=== PATIENT | male | born 1990 | race Two or more races ===

== ENCOUNTER 2024-04-22 13:09 | Emergency (ER) | payer OTHER ==
[~2024-04-22] VITALS: Ht 180.3 cm; Wt 104.5 kg
--- NOTE | 2024-04-22 14:05 | DVH ---
CLINICAL INDICATION: + DEFORMITY, ROLLED WHILE SKATEBOARDING TECHNIQUE: 3 radiographic views of the left ankle were obtained. Comparison: None FINDINGS/IMPRESSION: Anterior dislocation of the tibia fibula and talus. Posterior dislocation of the foot with bony fragm ents dorsal to the calcaneu. Donor sites may be from the talus or posterior calcaneus. AP view of the ankle demonstrate proximal bony fragments to be displaced laterally and foot displaced medially. HS:Y
--- NOTE | 2024-04-22 14:48 | ED.PDOC ---
Musculoskeletal HPI Comments 33 year old male presents to the ED with chief complaint of left ankle injury. Patient reports that after going on a ramp while skateboarding, he fell and injured his left ankle, causing it to become deformed. Patient relays that he has severe pain and swelling to his left ankle now. Patient states he has had multiple bilateral ankle sprains and fractures in the past. Patient notes he took 2 shots of hard liquor prior to coming in due to the pain. Patient denies any numbness, weakness, leg injury, back injury, or head injury. Chief Complaint: Lower Extremity Time Seen by MD: 14:40 Primary Care Provider: DENIES Reviewed Notes: Nurses Notes, Medications, Allergies Allergies: Coded Allergies: NO KNOWN ALLERGIES (Unverified , 04/22/24) Home Meds Active Scripts Ibuprofen (Ibuprofen) 800 Mg Tab, 1 TAB PO Q8HP PRN, #30 TAB 1 Refill Prov:CHASE PACE MD 04/22/24 Hydrocodone-Acetaminophen (Hydrocodone Bitartrate/AC 5-325 mg) 1 Tab Tab, 1 TAB PO TID PRN, #24 TAB Prov:PRESTON BABIN 04/22/24 Information Source: Patient Mode of Arrival: Wheelchair Location: Left Extremity Location: Ankle Timing: Hours Prehospital treatment: None Severity: Severe Able to Move Extremity: No Bear Weight: No Pain: Severe Mechanism: Twisting Circumstances: Sporting, Fall Onset of Symptoms: After Trauma Symptoms: Swelling, Pain DVT Risk Factors: NONE Last Tetanus: UTD Associated signs and symptoms: Ankle pain Past Medical History PAST MEDICAL HISTORY: Denies Surgical History: Denies all surgeries Family History Family History: Reviewed,noncontributory to illness Social History Smoker: Non-Smoker Alcohol: Occasionally Drugs: Marijuana Lives In: Home Constitutional: denies: chills, diaphoresis, fatigue, fever, malaise, sweats, weakness, others EENTM: denies: blurred vision, double vision, ear bleeding, ear discharge, ear drainage, ear pain, ear ringing, eye pain, eye redness, hearing loss, mouth pain, mouth swelling, nasal discharge, nose bleeding, nose congestion, nose pain, photophobia, tearing, throat pain, throat swelling, voice changes, others Respiratory: denies: cough, hemoptysis, orthopnea, SOB at rest, shortness of breath, SOB with excertion, stridor, wheezing, others Cardiovascular: denies: chest pain, dizzy spells, diaphoresis, Dyspnea on exertion, edema, irregular heart beat, left arm pain, lightheadedness, palpitations, PND, syncope, others Gastrointestinal: denies: abdomen distended, abdominal pain, blood streaked bowels, constipated, diarrhea, dysphagia, difficulty swallowing, hematemesis, melena, nausea, poor appetite, poor fluid intake, rectal bleeding, rectal pain, vomiting, others Genitourinary: denies: burning, dysuria, flank pain, frequency, hematuria, incontinence, penile discharge, penile sore, pain, testicle pain, testicle swelling, urgency, others Neurological: denies: dizziness, fainting, headache, left sided numbness, left sided weakness, numbness, paresthesia, pre-existing deficit, right sided numbness, right sided weakness, seizure, speech problems, tingling, tremors, weakness, others Musculoskeletal: reports: others (Left ankle pain, swelling, and dislocation); denies: back pain, gout, joint pain, joint swelling, muscle pain, muscle stiffness, neck pain Integumetry: denies: bruises, change in color, change in hair/nails, dryness, laceration, lesions, lumps, rash, wounds, others Allergic/Immunocompromised: denies: Difficulty Healing, Frequent Infections, Hives, Itching, others Hematologic/Lymphatic: denies: anemia, blood clots, easy bleeding, easy bruising, swollen glands, others Endocrine: denies: excessive hunger, excessive sweating, excessive thirst, excessive urination, flushing, intolerance to cold, intolerance to heat, unexplained weight gain, unexplained weight loss, others Psychiatric: denies: anxiety, bipolar disorder, depression, hopeless, panic disorder, schizophrenia, sleepless, suicidal, others All Other Systems: Reviewed and Negative Physical Exam General Appearance: Mild Distress HEENT: Other (Unremarkable) Neck: Full Range of Motion, Non-Tender, Normal Inspection Respiratory: Chest Non-Tender, Lungs Clear, No Accessory Muscle Use, No Respiratory Distress, Normal Breath Sounds Cardiovascular: No JVD, Regular Rate/Rhythm Breast Exam: Deferred Gastrointestinal: Non Tender, Soft Genitalia: Deferred Pelvic: Deferred Rectal: Deferred Extremities: Other (Left ankle deformity and soft tissue swelling with severe tenderness and limited range of motion. DP and PT pulses palpable left lower extremity) Neurologic: Alert (Oriented x4), Normal Affect, Normal Mood, Other (Moves all extremities. No gross focal deficit.) Cerebellar Function: NOT DONE Reflexes: NOT DONE Skin: Dry, Normal Color, Warm Peripheral Pulses: 2+ dorsalis pedis (R), 2+ dorsalis pedis (L) Lymphatic: NOT DONE Was a procedure done? Was a procedure done?: Yes Sedation Sedation?: Yes Informed consent obtained: Yes Sedation start time: 19:10 Sedation end time: 19:20 Sedation total time: 10 minutes Reduction Indication: Dislocation, Fracture Sedation: Consents obtained, Sedation as ordered (100mg of Ketamine) Intra-articular anesthetic carmela: No Post-reduction x-ray show: Reduction, Good Alignment Informed consent obtained: Yes Risks/benefits/alt described: Yes Other Procedure Procedure Left lower extremity short stirrup/posterior molded splint applied. Left lower extremity neurovascularly intact after splinting. Differential Diagnosis EXT Differential Diagnosis: Fracture, Sprain, Dislocation, Strain X-Ray, Labs, Meds, VS Vital Signs Date Time Temp Pulse Resp B/P (MAP) Pulse Ox O2 Delivery O2 Flow Rate FiO2 04/22/24 19:30 111 21 159/88 (111) 96 04/22/24 19:21 118 24 99 2.0 28 156 26 99 172 100 04/22/24 19:20 146 15 182/95 (124) 97 04/22/24 18:05 78 19 140/81 04/22/24 17:35 92 15 137/81 04/22/24 17:30 92 15 137/81 (99) 99 04/22/24 15:34 80 19 99 Room Air* 0 21 04/22/24 15:33 80 19 154/86 (108) 99 04/22/24 15:32 80 19 154/86 04/22/24 14:55 84 17 139/81 04/22/24 13:33 92 16 98 Room Air 04/22/24 13:33 98.5 92 16 152/89 (110) 98 98.5 04/22/24 13:25 99.0 83 16 139/85 (103) 96 Lab Test 04/22/24 14:53 Range/Units White Blood Count 9.8 4.4-10.8 10^3/uL Red Blood Count 4.87 4.5-5.90 10^6/uL Hemoglobin 11.1 L 13.5-17.5 g/dL Hematocrit 35.6 L 41.0-53.0 % Mean Corpuscular Volume 73.2 L 80.0-100.0 fL Mean Corpuscular Hemoglobin 22.7 L 28.0-32.0 pg Mean Corpuscular Hemoglobin Concent 31.0 L 32.0-36.0 g/dL Red Cell Distribution Width 27.0 H 11.8-14.3 % Platelet Count 262 140-450 10^3/uL Mean Platelet Volume 7.1 6.9-10.8 fL Neutrophils (%) (Auto) 84.7 H 37.0-80.0 % Lymphocytes (%) (Auto) 9.2 L 10.0-50.0 % Monocytes (%) (Auto) 5.2 0.0-12.0 % Eosinophils (%) (Auto) 0.3 0.0-7.0 % Basophils (%) (Auto) 0.6 0.0-2.0 % Neutrophils # (Auto) 8.3 1.6-8.6 10 ^3/uL Lymphocytes # (Auto) 0.9 0.4-5.4 10 ^3/uL Monocytes # (Auto) 0.5 0-1.3 10 ^3/uL Eosinophils # (Auto) 0 0-0.8 10 ^3/uL Basophils # (Auto) 0.1 0-0.2 10 ^3/uL Nucleated Red Blood Cells 0.0 % Sodium Level 137 136-145 mmol/L Potassium Level 3.8 3.5-5.1 mmol/L Chloride Level 105 98-107 mmol/L Carbon Dioxide Level 26 20-31 mmol/L Anion Gap 6 5-15 Blood Urea Nitrogen 10 9-23 mg/dL Creatinine 0.81 0.700-1.30 mg/dL Glomerular Filtration Rate Calc 121 >90 mL/min BUN/Creatinine Ratio 12.3 10.0-20.0 Serum Glucose 125 H 74-106 mg/dL Calcium Level 9.2 8.7-10.4 mg/dL Current Medications Medications (Trade) Dose Ordered Sig/Ramón Route Start Time Stop Time Status Last Admin Morphine Sulfate 4 mg ONCE ONCE IV 04/22/24 14:45 04/22/24 14:46 DC 04/22/24 14:55 Ondansetron HCl (Zofran) 4 mg ONCE ONCE IV 04/22/24 14:45 04/22/24 14:46 DC 04/22/24 14:52 Morphine Sulfate 4 mg ONCE ONCE IV 04/22/24 16:45 04/22/24 16:46 DC 04/22/24 17:35 Ketamine HCl (Ketalar) 100 mg ONCE ONCE IV 04/22/24 19:00 04/22/24 19:01 DC 04/22/24 19:04 Left Ankle XR: FINDINGS/IMPRESSION: Anterior dislocation of the tibia fibula and talus. Posterior dislocation of the foot with bony fragments dorsal to the calcaneu. Donor sites may be from the talus or posterior calcaneus. AP view of the ankle demonstrate proximal bony fragments to be displaced laterally and foot displaced medially. Left Ankle XR Post Reduction: FINDINGS/IMPRESSION: There is no evidence of acute fracture or dislocation. The visualized joint space is well maintained. The alignment is anatomical. There is no radiopaque foreign body. X-Ray, Labs, Meds, VS Comment 33-year-old male with no significant past medical history presenting with a left ankle fracture dislocation status post skateboarding injury Vitals unremarkable Exam remarkable for left ankle deformity, soft tissue swelling, tenderness and limited range of motion Left ankle x-rays: FINDINGS/IMPRESSION: Anterior dislocation of the tibia fibula and talus. Posterior dislocation of the foot with bony fragments dorsal to the calcaneu. Donor sites may be from the talus or posterior calcaneus. AP view of the ankle demonstrate proximal bony fragments to be displaced laterally and foot displaced medially. Left ankle postreduction x-rays: FINDINGS/IMPRESSION: There is no evidence of acute fracture or dislocation. The visualized joint space is well maintained. The alignment is anatomical. There is no radiopaque foreign body. Prior to reduction, I discussed the case with Dr. Rojas, on-call for Orthopedics. He reviewed the x-rays. He stated the patient did not have to be taken to the OR for reduction, and requested I perform the reduction in the ED. he stated the patient may follow-up with him tomorrow in clinic. Patient was treated with the following in the ED: Morphine 4 mg IV x2, Zofran 4 mg IV. Ketamine 100 mg IV was administered for conscious sedation. Please see procedure notes for details. On re-evaluation at 7:54 p.m., patient is comfortable with stable vitals. The left lower extremity has been splinted and is neurovascularly intact. Patient was provided with crutches and crutch training. He was advised regarding workup findings, my impression, treatment plan and follow-up recommendations. He expressed understanding and agreed. Time of 1ST Reevaluation: 15:40 Reevaluation 1ST: Unchanged Time of 2ND Reevaluation: 19:55 Reevaluation 2ND: Improved Patient Education/Counseling: Diagnosis, Treatment Family Education/Counseling: No Family Present Departure 1 Departure Time of Disposition: 19:55 Impression: Primary Impression: Closed left ankle fracture Qualified Codes: S82.892A - Other fracture of left lower leg, initial encounter for closed fracture Additional Impression: Dislocation of left ankle joint, initial encounter Disposition: HOME / SELF CARE / HOMELESS Condition: Stable Referrals: CHAD ROJAS MD Additional Instructions: Follow-up with Dr. Rojas, Orthopedics, in his clinic tomorrow. I have provided copies of your x-ray reports below. I have prescribed pain medication to take as needed. Nonweightbearing on the left lower extremity. Keep the left lower extremity elevated as much as possible. [place] [address] Ph: [phone] DIAGNOSTIC IMAGING Diagnostic Imaging Report : [id number] Signed PATIENT: WILIAN CISNEROS ACCT: [id number] UNIT: [id number] : 1990 LOC: ER ROOM / BED: / AGE / SEX: 33 / M ADM STATUS: REG ER SERVICE [facility] ORDERING PHYSICIAN: LEONILA PUCKETT MD PROCEDURE(s): LANKL - L ANKLE 3 VIEW REASON: + DEFORMITY, ROLLED WHILE SKATEBOARDING ORDER NUMBER(s): [id number], ACCESSION NUMBER(s): [id number] CLINICAL INDICATION: + DEFORMITY, ROLLED WHILE SKATEBOARDING TECHNIQUE: 3 radiographic views of the left ankle were obtained. Comparison: None FINDINGS/IMPRESSION: Anterior dislocation of the tibia fibula and talus. Posterior dislocation of the foot with bony fragments dorsal to the calcaneu. Donor sites may be from the talus or posterior calcaneus. AP view of the ankle demonstrate proximal bony fragments to be displaced laterally and foot displaced medially. HS:Y [place] [address] Ph: [phone] DIAGNOSTIC IMAGING Diagnostic Imaging Report : [id number] Signed PATIENT: WILIAN CISNEROS ACCT: [id number] UNIT: [id number] : 1990 LOC: ER ROOM / BED: / AGE / SEX: 33 / M ADM STATUS: REG ER SERVICE 04 ORDERING PHYSICIAN: CHASE PACE MD PROCEDURE(s): LANK2 - L ANKLE 2 VIEW XRAY REASON: POST REDUCTION ORDER NUMBER(s): [id number], ACCESSION NUMBER(s): [id number] CLINICAL INDICATION: POST REDUCTION TECHNIQUE: 2 radiographic views of the left ankle were obtained. Comparison: XY L ANKLE 3 VIEW on DOS: 04/22/24 FINDINGS/IMPRESSION: There is no evidence of acute fracture or dislocation. The visualized joint space is well maintained. The alignment is anatomical. There is no radiopaque foreign body. HS:Y e-Prescriptions Ibuprofen (Ibuprofen) 800 Mg Tab 1 TAB PO Q8HP PRN, #30 TAB 1 Refill Prov: CHASE PACE MD 04/22/24 Hydrocodone-Acetaminophen (Hydrocodone Bitartrate/AC 5-325 mg) 1 Tab Tab 1 TAB PO TID PRN, #24 TAB Prov: PRESTON BABIN [employer] 04/22/24 Discharged With: Relative Critical Care Note Critical Care Time?: No Stability Stability form required: No Heart Score Heart Score: Heart Score Response (Comments) Value History N/A 0 EKG N/A 0 Age N/A 0 Risk Factors N/A 0 Troponin N/A 0 Total 0 I personally scribed for CHASE PACE MD ([email or web address]) on 04/22/24 at 14:48. Electronically submitted by Jimenez Holland ([email or web address]). I personally scribed for CHASE PACE MD ([email or web address]) on 04/22/24 at 14:48. Electronically submitted by Jimenez Holland ([email or web address]). I personally scribed for CHASE PACE MD ([email or web address]) on 04/22/24 at 19:45. Electronically submitted by Jiemnez Holland ([email or web address]). I personally scribed for CHASE PACE MD ([email or web address]) on 04/22/24 at 1 9:46. Electronically submitted by Jimenez Holland ([email or web address]). CHASE PACE MD Apr 22, 2024 14:48
[2024-04-22] MEDS: ONDANSETRON HCL 4 MG/2 ML VIAL IV ONE (14:52)
[2024-04-22] MEDS: MORPHINE SULFATE 4 MG/ML SYR/VIAL IV ONE ×2 (14:55→17:35)
[2024-04-22 15:09] LABS: Basophils # (auto) 0.1 10 ^3/uL (0-0.2); Basophils % (auto) 0.6 % (0.0-2.0); Eosinophils # (auto) 0 10 ^3/uL (0-0.8); Eosinophils % (auto) 0.3 % (0.0-7.0); Hematocrit 35.6 % (41.0-53.0); Hemoglobin 11.1 g/dL (13.5-17.5); Lymphocytes # (auto) 0.9 10 ^3/uL (0.4-5.4); Lymphocytes % (auto) 9.2 % (10.0-50.0); Mean Corpuscular Hemoglobin 22.7 pg (28.0-32.0); Mean Corpuscular Volume 73.2 fL (80.0-100.0); Monocytes # (auto) 0.5 10 ^3/uL (0-1.3); Monocytes % (auto) 5.2 % (0.0-12.0); Neutrophils # (auto) 8.3 10 ^3/uL (1.6-8.6); Neutrophils % (auto) 84.7 % (37.0-80.0); Platelet Count (auto) 262 10^3/uL (140-450); Red Blood Cells 4.87 10^6/uL (4.5-5.90); White Blood Cell 9.8 10^3/uL (4.4-10.8)
[2024-04-22 15:20] LABS: Chloride 105 mmol/L (98-107); Potassium 3.8 mmol/L (3.5-5.1); Sodium 137 mmol/L (136-145)
[2024-04-22 15:21] LABS: Anion Gap 6 (5-15); Calcium 9.2 mg/dL (8.7-10.4); Carbon Dioxide 26 mmol/L (20-31)
[2024-04-22 15:26] LABS: BUN/Creatinine Ratio 12.3 (10.0-20.0); Blood Urea Nitrogen 10 mg/dL (9-23)
[2024-04-22 15:29] LABS: Glucose 125 mg/dL (74-106)
[2024-04-22 15:34] VITALS: PULSE 80; RESP 19; O2SAT 99
[2024-04-22] MEDS: KETAMINE 50mg/ML 1ml syringe IV ONE (19:04)
--- NOTE | 2024-04-22 19:26 | DVH ---
CLINICAL INDICATION: POST REDUCTION TECHNIQUE: 2 radiographic views of the left ankle were obtained. Comparison: XY L ANKLE 3 VIEW on DOS: 04/22/24 FINDINGS/IMPRESSION: There is no evidence of acute fracture or dislocation. The visualized joint space is well maintained. The alignment is anatomical. There is no radiopaque foreign body. HS:Y
[2024-04-22 19:30] VITALS: PULSE 111; RESP 21; O2SAT 95
[2024-04-22] MEDS: KETAMINE 50mg/ML 10ml Vial 10 ML ONE (19:38)
[2024-04-22] MEDS ORDERED: HYDR-4902 PO (19:48)
[2024-04-22] MEDS ORDERED: IBUP-1456 PO (19:58)
[2024-04-22 20:20] VITALS: BP 146/83; PULSE 110; RESP 14; TEMP 98.9; O2SAT 95
== END 2024-04-22 20:38 | disposition home or self-care (01) ==
LOC: ER 13:09
DX: S93.05XA Dislocation of left ankle joint, initial encounter (principal); F12.90 Cannabis use, unspecified, uncomplicated; Z79.899 Other long term (current) drug therapy; V00.131A Fall from skateboard, initial encounter; Y93.51 Activity, roller skating (inline) and skateboarding; Y92.89 Other specified places as the place of occurrence of the external cause; Y99.8 Other external cause status
CPT/HCPCS: 27818; 36415; 73600; 73610; 80048; 85025; 96374; 96375; 96376; 99152; 99285; J2270; J2405